=== PATIENT | male | born 1965 | race Caucasian/White ===

== ENCOUNTER 2022-08-22 13:22 | Emergency (ER) | payer MEDICAID ==
[~2022-08-22] VITALS: Ht 167.6 cm; Wt 72.6 kg
--- OUTSIDE RECORDS SUMMARY | 2022-08-22 14:30 | XMS ---
PreManage Notification: KEVIN BHARDWAJ Security Secondary Spanish Teacher Events No recent Security Events currently on file [facility] There are no care providers on record at this time. Wang has no Care Guidelines for this patient. Lyle VISIT COUNT (12 MO.) 1 [facility] TOTAL 1 NOTE: Visits indicate total known visits. ED/UCC VISIT TRACKING (12 MO.) 08/22/2022 13:23 [facility] [place] TYPE: Emergency COMPLAINT: - EXTREMITY PAIN/INJURY INPATIENT VISIT TRACKING (12 MO.) No inpatient visits to display in this time frame [email or web address]
[2022-08-22] MEDS ORDERED: OXYCODONE HCL5 MG PO (15:26)
== END 2022-08-22 16:37 | disposition home or self-care (01) ==
LOC: ED 13:22
DX: S83.92XA Sprain of unspecified site of left knee, initial encounter (principal); M17.12 Unilateral primary osteoarthritis, left knee; M25.462 Effusion, left knee; X58.XXXA Exposure to other specified factors, initial encounter
CPT/HCPCS: 73560; 99283-25

== ENCOUNTER 2022-09-01 20:03 | Emergency (ER) | payer MEDICAID ==
[~2022-09-01] VITALS: Ht 167.6 cm; Wt 68.5 kg
[~2022-09-01 20:03] MED LIST: OXYCODONE HCL5 MG PO
--- OUTSIDE RECORDS SUMMARY | 2022-09-01 20:04 | XMS ---
PreManage Notification: KEVIN BHARDWAJ Security Surgery Technician Events No recent Security Events currently on file CRITERIA MET - [facility] - 2 Visits in 30 Days - [facility] CARE PROVIDERS There are no care providers on record at this time. Wang has no Care Guidelines for this patient. L[facility] MO.) [facility] NOTE: Visits indicate total known visits. ED/C VISIT TRACKING (12 MO.) [facility] COMPLAINT: - DIZZINESS 08/22/2022 13:[address] [facility] [place] TYPE: Emergency COMPLAINT: - EXTREMITY PAIN/INJURY DIAGNOSES: - Unilateral primary osteoarthritis, left knee - Sprain of unspecified site of left knee, initial encounter - Exposure to other specified factors, initial encounter - Effusion, left knee - Pain in left knee INPATIENT VISIT TRACKING (12 MO.) No inpatient visits to display in this time frame [id number]
[2022-09-01] MEDS ORDERED: MECLIZINE HCL25 MG PO (23:28)
== END 2022-09-01 23:55 | disposition home or self-care (01) ==
LOC: ED 20:03
DX: R42 Dizziness and giddiness (principal); Z86.73 Personal history of transient ischemic attack (TIA), and cerebral infarction without residual deficits; Z88.5 Allergy status to narcotic agent
CPT/HCPCS: 36415; 70450; 80053; 81003; 85025; 99284-25; A9270

== ENCOUNTER 2022-10-12 17:50 | Emergency (ER) | payer OTHER ==
[~2022-10-12] VITALS: Ht 167.6 cm; Wt 70.4 kg
[~2022-10-12 17:50] MED LIST changes: +MECLIZINE HCL25 MG PO
--- OUTSIDE RECORDS SUMMARY | 2022-10-12 17:53 | XMS ---
PreManage Notification: KEVIN BHARDWAJ Security Ball Ender Events No recent Security Events currently on file CRITERIA MET - [facility] CARE PROVIDERS -, [facility]- Dentist: Straw Hat Brim Raiser Operator [facility] PHONE: [phone] Evelina Richards Nurse Practitioner: Family Current PHONE: Unknown Wang has no Care Guidelines for this patient. Lyle VISIT COUNT ([address] 2 [facility] [place] [address] [facility] [address] [facility] TOTAL 7 NOTE: Visits indicate total known visits. ED/UCC VISIT TRACKING (12 MO.) 10/12/2022 17:[address] [facility] [address] [facility] [place] TYPE: Emergency COMPLAINT: - FLANK PAIN 09/01/2022 20:03 [facility] [place] TYPE: Emergency COMPLAINT: - DIZZINESS DIAGNOSES: - Personal history of transient ischemic attack (TIA), and cerebral infarction without residual deficits - Dizziness and giddiness - Allergy status to narcotic agent 08/22/2022 13:[address] [facility] [place] TYPE: Emergency COMPLAINT: - EXTREMITY PAIN/INJURY DIAGNOSES: - Effusion, left knee - Pain in left knee - Unilateral primary osteoarthritis, left knee - Sprain of unspecified site of left knee, initial encounter - Exposure to other specified factors, initial encounter [facility] DIAGNOSES: - Sprain of unspecified site of left knee, initial encounter - Effusion, left knee - Unilateral primary osteoarthritis, left knee - Knee Pain [facility] [place] TYPE: Emergency DIAGNOSES: - Chest pain, unspecified - CHEST PAIN 01/31[facility]2022 15[facility]10 [facility] DIAGNOSES: - Other chronic pain - Fall - fall w/ spinal injury - Low back pain, unspecified - fall w/ spinal injury/EMS 11/08/2021 17:57 [facility] [place] TYPE: Emergency DIAGNOSES: - Fracture of tooth (traumatic), initial encounter for closed fracture - Dental Pain - Other specified disorders of teeth and supporting structures INPATIENT VISIT TRACKING (12 MO.) No inpatient visits to display in this time frame [id number]
[2022-10-12] MEDS ORDERED: LO-DOSE ASPIRIN81 MG PO (18:48)
[2022-10-12] MEDS ORDERED: NORTRIPTYLINE H25 MG PO (18:48)
[2022-10-12] MEDS ORDERED: VERAPAMIL SR240 MG PO (18:49)
[2022-10-12] MEDS ORDERED: TAMSULOSIN HCL0.4 MG PO (18:49)
[2022-10-12] MEDS ORDERED: OMEPRAZOLE40 MG PO (18:49)
[2022-10-12] MEDS ORDERED: GABAPENTIN300 MG PO (18:49)
== END 2022-10-12 21:07 | disposition home or self-care (01) ==
LOC: ED 17:50
DX: M54.50 Low back pain, unspecified (principal); G89.29 Other chronic pain; Z88.5 Allergy status to narcotic agent; Z79.899 Other long term (current) drug therapy; Z79.82 Long term (current) use of aspirin
CPT/HCPCS: 36415; 80053; 81003; 85025; 96361; 96374; 96375; 99284-25; J1885; J2405; J7121

== ENCOUNTER 2025-04-19 20:37 | Emergency (ER) | payer OTHER ==
[~2025-04-19] VITALS: Ht 167.6 cm; Wt 73.8 kg
[~2025-04-19 20:37] MED LIST changes: +ATORVASTATIN CA20 MG PO; +GABAPENTIN300 MG PO; +LIDODERM1 EACH TOP; +LO-DOSE ASPIRIN81 MG PO; +MELOXICAM7.5 MG PO; +NORTRIPTYLINE H25 MG PO; +OMEPRAZOLE40 MG PO; +OXYCODONE HCL10 MG PO; +PREDNISONE20 MG PO; +PREGABALIN300 MG PO; +SERTRALINE HCL50 MG PO; +SUMATRIPTAN SU100 MG PO; +TAMSULOSIN HCL0.4 MG PO; +VERAPAMIL SR240 MG PO; +VITAMIN D21250 MCG
--- OUTSIDE RECORDS SUMMARY | 2025-04-19 20:42 | XMS ---
PreManage Notification: KEVIN BHARDWAJ Security Welfare Manager Events No recent Security Events currently on file CRITERIA MET - [facility] - 2 Visits in 30 Days CARE PROVIDERS -, [facility] Dentist: Skirt Panel Assembler Current [place] PHONE: [phone] Evelina Richards Nurse Practitioner: Family Current PHONE: Unknown Wang has no Care Guidelines for this patient. EPatsy VISIT COUNT (12 MO.) [address] TOTAL 3 NOTE: Visits indicate total known visits. ED/UCC VISIT TRACKING (12 MO.) 04/19/2025 20:37 [facility] [place] TYPE: Emergency COMPLAINT: - BACK PAIN 04/01/2025 18:37 [facility] [place] TYPE: Emergency COMPLAINT: - BACK PAIN/EXTREMITY NUMBNESS DIAGNOSES: - Allergy status to narcotic agent - Essential (primary) hypertension - Gastro-esophageal reflux disease without esophagitis - Hyperlipidemia, unspecified - intermediate card tender (current) use of aspirin - Low back pain, unspecified - Low back pain, unspecified - Lumbago with sciatica, left side - Lumbago with sciatica, right side - Other chronic pain - Other petroleum terminal plant operator (current) drug therapy - Polyneuropathy, unspecified - Unspecified urinary incontinence 07[facility]10[facility]24 [facility] DIAGNOSES: - Unspecified abdominal pain - Vomiting, unspecified - Flu like symptoms INPATIENT VISIT TRACKING (12 MO.) No inpatient visits to display in this time frame [email or web address]
[2025-04-19] MEDS ORDERED: KETOROLAC TROMETHAMINE 30 MG/ML VIAL IV ONE (21:00)
[2025-04-19] MEDS ORDERED: CYCLOBENZAPRINE HCL 10 MG TAB PO ONE (21:00)
[2025-04-19] MEDS ORDERED: HYDROmorphone HCL 1 MG/ML SYR IV ONE (21:00)
[2025-04-19] MEDS ORDERED: OXYCODONE HCL 10 MG TAB PO ONE (21:45)
[2025-04-19] MEDS ORDERED: CYCLOBENZAPRINE HCL 10 MG HOME.PACK PO ONE (23:15)
[2025-04-19] MEDS ORDERED: CYCLOBENZAPRINE10 MG PO (23:15)
[2025-04-19 23:28] VITALS: BP 108/70
== END 2025-04-19 23:31 | disposition home or self-care (01) ==
LOC: ED 20:37
DX: M54.50 Low back pain, unspecified (principal); G89.29 Other chronic pain; R73.03 Prediabetes; I10 Essential (primary) hypertension; K21.9 Gastro-esophageal reflux disease without esophagitis; Z88.5 Allergy status to narcotic agent; Z79.899 Other long term (current) drug therapy
CPT/HCPCS: 96374; 96375; 99284-25; J1171; J1885